=== PATIENT | male | born 1990 | race American Indian/Alaskan Native ===

== ENCOUNTER 2016-11-27 13:16 | Emergency (ER) | payer SELFPAY ==
[2016-11-27 13:49] LABS: Basophils % (Auto) 0.6 % (0.0-1.8); Eosinophils % (Auto) 2.4 % (0.0-4.3); Hemoglobin 13.4 gm/dl (11.8-15.2); Mean Corpuscular HGB Conc 34 % (32-34); Mean Corpuscular Hemoglobin 30 pg (28-32); Mean Corpuscular Volume 88 fl (84-94); Platelet Count 206 K/mm3 (140-440); Red Blood Count 4.54 M/mm3 (3.65-5.03); Red Cell Distribution Width 13.3 % (13.2-15.2)
[2016-11-27 14:11] LABS: Bilirubin,Urine NEG (Negative); Blood,Urine NEG (Negative); Ketones,Urine NEG (Negative); Leukocyte Esterase,Urine NEG (Negative); Mucus,Urine FEW /HPF; Nitrite,Urine NEG (Negative); Protein,Urine <15 mg/dL mg/dL (Negative)
[2016-11-27 14:13] LABS: Alanine Aminotransferase 16 units/L (7-56); Albumin 4.5 g/dL (3.9-5); Albumin/Globulin Ratio 1.4 %; Alkaline Phosphatase 91 units/L (35-129); Anion Gap 15 mmol/L; BUN/Creatinine Ratio 9; Blood Urea Nitrogen 9 mg/dL (9-20); Calcium 9.1 mg/dL (8.4-10.2); Carbon Dioxide 28 mmol/L (22-30); Glucose 116 mg/dL (75-100); Lipase 41 units/L (13-60); Potassium 3.6 mmol/L (3.6-5.0); Sodium 140 mmol/L (137-145); Total Protein 7.7 g/dL (6.3-8.2)
--- NOTE | 2016-11-27 15:50 | XRay Report ---
ABDOMEN RADIOGRAPHS INDICATION: Abdominal pain. COMPARISON: None similar at this institution. FINDINGS: Frontal abdominal radiographs demonstrate nonobstructive bowel gas pattern. No focal suspicious calcifications, pneumatosis or pneumoperitoneum. Clear visualized lung bases. Unremarkable bones. CONCLUSION: Normal abdominal radiographs, as described. Thank you for the opportunity to participate in this patient's care.
[2016-11-27] MEDS ORDERED: LIDOCAINE VISCOUS 2% PO ONE (15:58)
[2016-11-27] MEDS ORDERED: NYSTATIN PO ONE (15:58)
[2016-11-27] MEDS ORDERED: BENADRYL PO ONE (15:58)
[2016-11-27] MEDS ORDERED: ALUM-MAG HYDROX-SIMETH 200-200-20MG/5ML PO ONE (15:58)
[2016-11-27 17:52] VITALS: BP 136/86
[2016-11-27] MEDS ORDERED: MOTRIN PO ONE (17:53)
[2016-11-27] MEDS ORDERED: TYLENOL PO ONE (17:53)
--- NOTE | 2016-11-27 17:53 | Emergency Department Report ---
ED General Adult HPI - General Chief complaint: Abdominal Pain Stated complaint: ABDOMINAL PAIN Time Seen by Provider: 11/27/16 17:35 Source: patient Mode of arrival: Ambulatory Limitations: No Limitations - Related Data Previous Rx's Medication Instructions Recorded Last Taken Type Acetaminophen [Tylenol Arthritis] 650 mg PO Q6HR PRN #30 tablet.er 11/27/16 Unknown Rx Ibuprofen [Motrin] 600 mg PO Q8H PRN #30 tablet 11/27/16 Unknown Rx Allergies Allergy/AdvReac Type Severity Reaction Status Date / Time No Known Allergies Allergy Unverified 11/27/16 13:27 ED Review of Systems ROS: Stated complaint: ABDOMINAL PAIN Other details as noted in HPI ED Past Medical Hx - Past Medical History Previous Medical History?: Yes Hx Hypertension: Yes Additional medical history: KIDNEY TISSUE DAMAGE - Surgical History Past Surgical History?: No - Social History Smoking Status: Never Smoker Substance Use Type: Alcohol, Marijuana - Medications Home Medications: Home Medications Medication Instructions Recorded Confirmed Last Taken Type Acetaminophen [Tylenol Arthritis] 650 mg PO Q6HR PRN #30 tablet.er 11/27/16 Unknown Rx Ibuprofen [Motrin] 600 mg PO Q8H PRN #30 tablet 11/27/16 Unknown Rx ED Physical Exam - General Limitations: No Limitations General appearance: alert, in no apparent distress - Head Head exam: Present: atraumatic, normocephalic - Eye Eye exam: Present: normal appearance, EOMI. Absent: nystagmus - ENT ENT exam: Present: normal exam, normal orophraynx, mucous membranes moist, normal external ear exam - Neck Neck exam: Present: normal inspection, full ROM. Absent: tenderness, meningismus - Respiratory Respiratory exam: Present: normal lung sounds bilaterally, chest wall tenderness. Absent: respiratory distress, wheezes, rales, rhonchi, stridor - Cardiovascular Cardiovascular Exam: Present: regular rate, normal rhythm. Absent: bradycardia , tachycardia, irregular rhythm, normal heart sounds, systolic murmur, diastolic murmur, rubs, gallop - GI/Abdominal GI/Abdominal exam: Present: soft, normal bowel sounds. Absent: distended, tenderness, guarding, rebound, rigid, pulsatile mass - Rectal Rectal exam: Present: deferred - exam: Present: other (on the left lateral aspect of the glans, there is a painful lesion. There is no redness, pus or streaking). Absent: testicular tenderness External exam: Present: other (there is no testicular tenderness. There is normal testicular lie bilaterally. There is normal cremasteric reflex bilaterally.) - Extremities Exam Extremities exam: Present: normal inspection, full ROM, normal capillary refill , other (no lesions noted on the palms or soles.). Absent: pedal edema, joint swelling, calf tenderness - Back Exam Back exam: Present: normal inspection - Neurological Exam Neurological exam: Present: alert, oriented X3, normal gait, other (Extraocular movements intact. Tongue midline. No facial droop. Facial sensation intact to light touch in the V1, V2, V3 distribution bilaterally. 5 and 5 strength in 4 extremities.. Sensation is intact to light touch in 4 extremities.). Absent : motor sensory deficit - Psychiatric Psychiatric exam: Present: normal affect, normal mood - Skin Skin exam: Present: warm, dry, intact, normal color. Absent: rash ED Course Vital Signs 11/27/16 11/27/16 13:27 14:24 Temperature 99.1 F Pulse Rate 128 H 97 H Respiratory 18 16 Rate Blood Pressure 151/91 Blood Pressure 125/71 [Left] O2 Sat by Pulse 100 97 Oximetry - Reevaluation(s) Reevaluation #1: 11/27/16 17:54 Sodium: 140 Potassium: 3.6 Chloride: 101.1 ED Medical Decision Making - Lab Data Result diagrams: 11/27/16 13:32 11/27/16 13:32 Vital Signs 11/27/16 11/27/16 13:27 14:24 Temperature 99.1 F Pulse Rate 128 H 97 H Respiratory 18 16 Rate Blood Pressure 151/91 Blood Pressure 125/71 [Left] O2 Sat by Pulse 100 97 Oximetry Lab Results 11/27/16 11/27/16 11/27/16 Range/Units 13:32 13:32 13:44 WBC 6.0 (4.5-11.0) K/mm3 RBC 4.54 (3.65-5.03) M/mm3 Hgb 13.4 (11.8-15.2) gm/dl Hct 40.0 (35.5-45.6) % MCV 88 (84-94) fl MCH 30 (28-32) pg MCHC 34 (32-34) % RDW 13.3 (13.2-15.2) % Plt Count 206 (140-440) K/mm3 Lymph % (Auto) 32.8 (13.4-35.0) % [place] % (Auto) 10.7 H (0.0-7.3) % Eos % (Auto) 2.4 (0.0-4.3) % Baso % (Auto) 0.6 (0.0-1.8) % Lymph # 2.0 (1.2-5.4) K/mm3 [place] # 0.6 (0.0-0.8) K/mm3 Eos # 0.1 (0.0-0.4) K/mm3 Baso # 0.0 (0.0-0.1) K/mm3 Seg Neutrophils % 53.5 (40.0-70.0) % Seg Neutrophils # 3.2 (1.8-7.7) K/mm3 Carbon Dioxide 28 (22-30) mmol/L BUN 9 (9-20) mg/dL Creatinine 1.0 (0.8-1.5) mg/dL Estimated GFR > 60 ml/min BUN/Creatinine Ratio 9 % Glucose 116 H (75-100) mg/dL Calcium 9.1 (8.4-10.2) mg/dL Total Bilirubin 0.20 (0.1-1.2) mg/dL AST 20 (5-40) units/L ALT 16 (7-56) units/L Alkaline Phosphatase 91 (35-129) units/L Total Protein 7.7 (6.3-8.2) g/dL Albumin 4.5 (3.9-5) g/dL Albumin/Globulin Ratio 1.4 % Lipase 41 (13-60) units/L Urine Color Yellow (Yellow) Urine Turbidity Clear (Clear) Urine pH 7.0 (5.0-7.0) Ur Specific [place] 1.017 (1.003-1.030) Urine Protein <15 mg/dl (Negative) mg/dL Urine Glucose (UA) Neg (Negative) mg/dL Urine Ketones Neg (Negative) mg/dL Urine Blood Neg (Negative) Urine Nitrite Neg (Negative) Urine Bilirubin Neg (Negative) Urine Urobilinogen 2.0 (<2.0) mg/dL Ur Leukocyte Esterase Neg (Negative) Urine WBC (Auto) 1.0 (0.0-6.0) /HPF Urine RBC (Auto) 2.0 (0.0-6.0) /HPF Urine Mucus Few /HPF - Medical Decision Making Differential diagnosis: Urinary tract infection, chlamydia, gonorrhea, syphilis , right inguinal adenopathy Assessment and plan: 26-year-old male, reports bloody ejaculation 2 weeks ago, suprapubic abdominal pain for 2 weeks which has since resolved, has right-sided inguinal adenopathy, and painful lesion on the left aspect of the glans penis. Patient reports that he had a "scab", which he subsequently peeled off, and this is the most likely explanation for his painful lesion. He denies irritative and obstructive urinary symptoms, his urinalysis is not suggestive of chlamydia or gonorrhea, his abdomen is soft and benign, with no rebound, guarding or peritoneal signs. His tachycardia has resolved, he looks quite comfortable, and is playing on a cellular phone. Patient reports that he is using condoms during sex, given that his abdomen is soft, laboratory studies unremarkable, including sodium of 140, potassium 3.6, chloride of 101.1, patient 's is able to follow up with outpatient primary care doctor. He is not especially concerned about sexual transmitted diseases, and given his lack of irritative or struck of urinary symptoms and urinalysis, and the fact that he is practicing safe sex, I will not screen the patient for STD at this time. There does not appear to be an emergent condition at this time, patient will be discharged with follow-up Critical care attestation.: If time is entered above; I have spent that time in minutes in the direct care of this critically ill patient, excluding procedure time. ED Disposition Clinical Impression: Hematospermia Disposition: DC-01 TO HOME OR SELFCARE Is pt being admited?: No Does the pt Need Aspirin: No Condition: Stable Additional Instructions: Take the pain medication as directed. Follow up with a primary care doctor within the next months. Dr. Hsieh is a local primary care doctor. The [facility] is a local medical clinic. If you continue to have bloody ejaculations, please follow up with a urology specialist, within the next 4-6 weeks. If you develop burning or pain with urination, painless lesions on the genitals, lesions on the palms or soles, return to the ER right away, follow up with a primary care doctor, or follow-up at the local health department. Return to the ER right away with new pain, worsening pain, migration of pain, fevers, chills, lethargy, irritability, projectile vomiting, change in mental status, inability to tolerate liquid feeds, confusion. Referrals: PRIMARY CARE, [Primary Care Provider] - 3-5 Days DILIP HSIEH MD [Staff Physician] - 3-5 Days EMILY MORATAYA MD [Staff Physician] - 3-5 Days [facility] [Provider Group] - 3-5 Days [facility] [Outside] - 3-5 Days
== END 2016-11-27 18:07 | disposition home or self-care (01) ==
LOC: ED 13:16
DX: R36.1 Hematospermia (principal); I10 Essential (primary) hypertension; F12.10 Cannabis abuse, uncomplicated
CPT/HCPCS: 36415; 74020; 80053; 81001; 83690; 85025; 99284